=== PATIENT | male | born 1980 | race Caucasian/White ===

== ENCOUNTER 2019-05-17 19:20 | Emergency (ER) | payer SELFPAY ==
[~2019-05-17] VITALS: Ht 172.7 cm; Wt 83.9 kg
[2019-05-17 19:47] VITALS: BP 165/93
[2019-05-17] MEDS ORDERED: GABA-585 PO (20:18)
[2019-05-17] MEDS ORDERED: QUET100T4 PO (20:19)
[2019-05-17] MEDS ORDERED: FLUO40CA2 PO (20:19)
[2019-05-17] MEDS ORDERED: CLON1TAB PO (20:19)
[2019-05-17] MEDS ORDERED: MIRT30TA93 PO (20:19)
[2019-05-17] MEDS ORDERED: CLONAZEPAM1 MG PO (20:59)
--- NOTE | 2019-05-17 20:59 | PHYS DOC ---
Past Medical History Past Medical History: Anxiety, Depression Additional Past Medical Histor: borderline personality disorder Past Surgical History: Cholecystectomy Alcohol Use: None Drug Use: None Adult General Chief Complaint Chief Complaint: MEDICATION REFILL [facility] HPI Patient is a 39 year old male who presents with is here from out of town for [employer] local [employer]. He states that he had hidden his clonazepam under the mattress at the [place] and where he is staying and he came back today to find it missing. He states he had just noted on May 11, 2019 and had 90 pills. Patient states that he had taken 1830 at approximate 72 pulse missing. He states he has taken his medicine for a very long time and he needs the medication. He takes his pain him 1 mg 3 times a day. He states he is here until May 27, 2019. Review of Systems Review of Systems Medication Refill Constitutional: Denies fever or chills [] Eyes: Denies change in visual acuity, redness, or eye pain [] HENT: Denies nasal congestion or sore throat [] Respiratory: Denies cough or shortness of breath [] Cardiovascular: No additional information not addressed in HPI [] GI: Denies abdominal pain, nausea, vomiting, bloody stools or diarrhea [] : Denies dysuria or hematuria [] Musculoskeletal: Denies back pain or joint pain [] Integument: Denies rash or skin lesions [] Neurologic: Denies headache, focal weakness or sensory changes [] Endocrine: Denies polyuria or polydipsia [] All other systems were reviewed and found to be within normal limits, except as documented in this note. Allergies Allergies Allergies Coded Allergies Type Severity Reaction Last Updated Verified haloperidol Adverse Reaction Unknown "shaking" 05/17/19 Yes Physical Exam Physical Exam Constitutional: Well developed, well nourished, no acute distress, non-toxic appearance. [] HENT: Normocephalic, atraumatic, bilateral external ears normal, oropharynx moist, no oral exudates, nose normal. [] Eyes: PERRLA, EOMI, conjunctiva normal, no discharge. [] Neck: Normal range of motion, no tenderness, supple, no stridor. [] Cardiovascular:Heart rate regular rhythm, no murmur [] Lungs & Thorax: Bilateral breath sounds clear to auscultation [] Abdomen: Bowel sounds normal, soft, no tenderness, no masses, no pulsatile masses. [] Skin: Warm, dry, no erythema, no rash. [] Back: No tenderness, no CVA tenderness. [] Extremities: No tenderness, no cyanosis, no clubbing, ROM intact, no edema. [] Neurologic: Alert and oriented X 3, normal motor function, normal sensory function, no focal deficits noted. [] Psychologic: Affect normal, judgement normal, mood normal. Normal Physical Exam [] Current Patient Data Vital Signs Vital Signs Date Time Temp Pulse Resp B/P (MAP) Pulse Ox O2 Delivery O2 Flow Rate FiO2 05/17/19 19:47 98.4 95 20 165/93 (117) 96 Room Air 98.4 EKG EKG [] Radiology/Procedures Radiology/Procedures [] Course & Med Decision Making Course & Med Decision Making Alert and oriented. Ambulatory with steady gait. Speaks in full clear sentences. Skin pink warm and dry. Vital signs within normal limits. Patient has no complaints and no which are all symptoms. Denies nausea, vomiting, abdominal pain, dizziness, syncope, confusion, hallucinations, tremors, headache, visual changes, numbness or tingling. Lungs are clear to station lobes. I have spoken to Dr. Alberto about this patient. He states to give the patient just enough to get through until he leaves and goes back home. Pedro Disclaimer Pedro Disclaimer This electronic medical record was generated, in whole or in part, using a voice recognition dictation system. Departure Departure Impression: Primary Impression: Encounter for medication refill Disposition: HOME, SELF-CARE Condition: STABLE Referrals: NO PCP (PCP) Patient Instructions: Medication Refill, Emergency Department Additional Instructions: Make a police report. Take medications as prescribed. Scripts Clonazepam (CLONAZEPAM) 1 Mg Tablet 1 MG PO TID for FOR ANXIETY for 10 Days, #30 TAB Prov: HAJA BLANCHARD APRN 05/17/19 HAJA BLANCHARD APRN May 17, 2019 20:59
== END 2019-05-17 21:11 | disposition home or self-care (01) ==
LOC: ER 19:20
DX: F41.9 Anxiety disorder, unspecified (principal); Z76.0 Encounter for issue of repeat prescription; F32.9 Major depressive disorder, single episode, unspecified; Z88.8 Allergy status to other drugs, medicaments and biological substances
CPT/HCPCS: 99283